=== PATIENT | female | born 2005 | race Caucasian/White ===

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

== ENCOUNTER 2023-04-08 07:23 | Emergency (ER) | payer OTHER, SELFPAY ==
[2023-04-08] VITALS (17 sets, daily range): BP systolic 94–117; BP diastolic 43–75; PULSE 76–107; RESP 15–20; TEMP 37.1; O2SAT 98–100
--- NOTE | ~2023-04-08 | CT_ITS ---
EXAMINATION: CT brain wo con DATE: 04/08/2023 08:11 INDICATION: Headache TECHNIQUE: Computed tomography (CT) of the head was performed without intravenous contrast. The dose- length product was 605.33 mGy-cm. Automated exposure control and iterative reconstruction technique w ere employed. COMPARISON: None FINDINGS: No acute intracranial hemorrhage, infarction, mass or mass effect or mass effect. Normal gr ay-white differentiation. No acute hemorrhage, infarction, mass or mass effect. Basilar cisterns are patent. Paranasal sinuses and mastoids are pneumatized. IMPRESSION: 1. No acute intracranial abnormality. Reviewed, dictated and finalized at location B.
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
[2023-04-08] MEDS: SODIUM CHLORIDE 0.9% IV 1,000 ML 999 ML IV CONT (08:04)
[2023-04-08] MEDS: KETOROLAC 30 MG/ML VIAL (*BKC) IV PUSH (08:05)
[2023-04-08] MEDS: ONDANSETRON INJ 4 MG/2 ML VIAL IV PUSH (08:05)
[2023-04-08] MEDS: LORazepam INJ (*CRX) 2 MG/ML VIAL 0.5 MG IV PUSH (09:53)
[2023-04-08 10:03] LABS: Strep Group A RT-PCR NOT DETECTED (Negative)
[2023-04-08 10:14] LABS: SARS-CoV-2 RNA PCR Positive (Negative)
[2023-04-08 21:44] LABS: Monoscreen Negative (Negative)
[2023-04-08 21:45] LABS: Negative Monotest Control Negative (Negative); Positive Monotest Control Positive (Positive)
== END 2023-04-08 10:25 | disposition home or self-care (01) ==
PROVIDERS: Emergency Provider Emergency Medicine
DX: U07.1 COVID-19 (principal); R51.9 Headache, unspecified; V28.09XA Other motorcycle driver injured in noncollision transport accident in nontraffic accident, initial encounter
CPT/HCPCS: 36415; 70450; 86308; 87635; 87651; 96361; 96374; 96375; 99284; J1885; J2060; J2405; J7030

== ENCOUNTER 2024-02-28 15:45 | Emergency (ER) | payer OTHER, SELFPAY ==
[2024-02-28] VITALS (30 sets, daily range): BP systolic 109–136; BP diastolic 53–97; PULSE 88–112; RESP 11–24; TEMP 36.8; O2SAT 98–100
--- NOTE | ~2024-02-28 | XR_ITS ---
EXAMINATION: XR chest 1V portable Exam Date/Time: 02/28/2024 18:10 CDT HISTORY: Palpitations/Chest tightness WITH NECK PAIN Comparison: None. RESULT: Lines, tubes, and devices: None. Lungs and pleura: Clear. Cardiomediastinal silhouette: Normal. Other: No acute osseous or upper abdominal finding. IMPRESSION: No acute cardiopulmonary process. Reviewed, dictated and finalized at location K.
--- NOTE | 2024-02-28 16:39 | ECG_ITS ---
Test Date: 2024-02-28 16:39:17 Measurements Intervals [place] Rate: 89 P: 34 OK: 135 QRS: 37 QRSD: 82 T: 23 QT: 359 QTc: 437 Interpretive Statements SINUS RHYTHM RSR' IN V1 OR V2, PROBABLY NORMAL VARIANT BASELINE ARTIFACT- V2-V3 BORDERLINE ECG No previous ECG available for comparison Electronically Signed On 02-29-2024 07:06:12 CDT by Christopher Delong D.O.
[2024-02-28 16:40] LABS: Glucose Point of Care 124 mg/dl (65-105)
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
[2024-02-28] MEDS: SODIUM CHLORIDE 0.9% IV 3,000 ML 999 ML IV CONT (17:58)
[2024-02-28 18:25] LABS: Appearance Urine Clear (Clear); Bilirubin Urine Negative (Negative); Blood Urine Negative (Negative); Color Urine Yellow (Yellow); Glucose Urine UA Negative (Negative); Ketones Urine Negative (Negative); Leukocyte Esterase Ur Negative LEU/UL (Negative); Nitrate Urine Negative (Negative); Protein Urine Negative (Negative); Urobilinogen Urine 0.2 mg/dL (<2.0); pH Urine 8.5 (5.0-9.0)
[2024-02-28 18:26] LABS: Basophils Absolute Auto 0.1 K/mm3 (0.0-0.1); Basophils Percent Auto 0.7 % (0.2-1.2); Eosinophils Percent Auto 0.3 % (0-4.4); Hematocrit 37.5 % (37.0-47.0); Hemoglobin 12.1 g/dL (12.0-15.0); Immature Granulocyte Absolute 0.02 K/mm3 (0.00-0.031); Immature Granulocyte Percent A 0.3 % (0-0.5); Lymphocytes Absolute Auto 1.65 K/mm3 (0.9-3.2); Lymphocytes Percent Auto 23.3 % (18.3-44.2); Mean Corpuscular HGB Conc 32.3 g/dl (32-36); Mean Corpuscular Hemoglobin 27.6 pg (26-34); Mean Corpuscular Volume 85.4 fl (80-100); Mean Platelet Volume 9.7 fl (7.4-10.4); Monocytes Absolute Auto 0.6 K/mm3 (0.1-0.6); Monocytes Percent Auto 8.7 % (2.6-8.5); Neutrophils Absolute Auto 4.7 K/mm3 (1.3-6.7); Neutrophils Percent Auto 66.7 % (45.5-73.1); Platelet Count Result 303 k/mm3 (150-375); Red Blood Count 4.39 M/mm3 (4.2-5.4); Red Cell Distribution Width 13.2 % (11.5-14.5); White Blood Count 7.1 K/mm3 (4.5-10.0)
[2024-02-28 18:36] LABS: Add Urine Microscopic? NO; Amphetamine Screen Urine Negative (Negative); Barbiturate Screen Urine Negative (Negative); Benzodiazepines Screen Urine Negative (Negative); Cannabinoid Screen Urine Negative (Negative); Cocaine Screen Urine Negative (Negative); Methadone Screen Urine Negative (Negative); Opiate Screen Urine Negative (Negative); Phencyclidine Screen Urine Negative (Negative)
[2024-02-28 18:37] LABS: Ethanol < 10 mg/dL (<10)
[2024-02-28 18:38] LABS: Alanine Aminotransferase 16 U/L (6-35); Albumin Level 4.1 g/dL (3.5-5.1); Alkaline Phosphatase 57 U/L (38-126); Anion Gap 9 mmol/L (4-12); Aspartate Amino Transferase 25 U/L (14-36); Bilirubin,Total 0.4 mg/dL (0.2-1.3); Blood Urea Nitrogen 8 mg/dL (7-17); Calcium 8.8 mg/dL (8.4-10.2); Carbon Dioxide 26 mmol/L (22-30); Chloride 104 mmol/L (98-107); Estimated Glomerular Filt Rate > 60; Glucose 105 mg/dL (65-110); Potassium 3.7 mmol/L (3.4-5.0); Sodium 139 mmol/L (137-145)
[2024-02-28 18:40] LABS: D Dimer 0.29 ug/mL (<0.48)
[2024-02-28 18:50] LABS: NT Pro B Type Natriuretic Pept 28 pg/mL (19.9-100); Troponin I < 0.012 ng/mL (0.000-0.034)
--- NOTE | 2024-02-28 19:38 | ECG_ITS ---
Test Date: 2024-02-28 19:38:37 Measurements Intervals [place] Rate: 91 P: 26 NE: 138 QRS: 20 QRSD: 80 T: 9 QT: 373 QTc: 460 Interpretive Statements SINUS RHYTHM BORDERLINE T WAVE ABNORMALITY- INFERIOR LEADS BORDERLINE ECG Compared to ECG 02/28/2024 16:39:17 No significant changes Electronically Signed On 02-29-2024 17:17:22 CDT by Christopher Delong D.O.
[2024-02-28 19:59] LABS: Troponin I < 0.012 ng/mL (0.000-0.034)
== END 2024-02-28 21:11 | disposition home or self-care (01) ==
PROVIDERS: Emergency Provider Emergency Medicine
DX: R41.82 Altered mental status, unspecified (principal)
CPT/HCPCS: 36415; 71045; 80053; 80307; 81003; 81025; 82948; 83880; 84443; 84484; 85025; 85380; 93005; 96360; 99284; J7030

== ENCOUNTER 2025-03-05 14:45 | Outpatient (CLI) | payer BC, SELFPAY ==
--- NOTE | ~2025-03-05 | US_ITS ---
EXAMINATION: US pelvic complete w TV INDICATION: Pelvic and perineal pain Comparison:No prior studies for comparison. TECHNIQUE: Multiple transabdominal and endovaginal sonographic images of the pelvis performed. FINDINGS: The uterus measures 6.2 x 4 x 3.1 cm. The endometrial complex measures 8 mm. The right ovary measures 2.5 x 2.4 x 2.0 cm and the left ovary is not visualized. There is no free fl uid in the pelvis. There are no abnormal masses seen on either side. IMPRESSION: 1. Unremarkable pelvic ultrasound. Reviewed, dictated and finalized at location A.
== END 2025-03-05 14:46 | disposition home or self-care (01) ==
LOC: GOSHIMG 14:45
PROVIDERS: PCP Nurse Practitioner Obstetrics & Gynecology; Visit Provider Nurse Practitioner Obstetrics & Gynecology
DX: R10.2 Pelvic and perineal pain (principal)
CPT/HCPCS: 76830; 76856